=== PATIENT | female | born 1995 | race Two or more races ===

== ENCOUNTER 2017-09-25 17:24 | Inpatient (IN) | payer OTHER ==
[~2017-09-25] VITALS: Ht 162.6 cm; Wt 45.4 kg
[~2017-09-25 17:24] MED LIST: FLEXERIL10 MG PO; PRENATABS RX TA1 TAB
[2017-09-25] MEDS ORDERED: PREDNISONE50 MG (17:36)
[2017-09-25] MEDS ORDERED: VITAMIN D400 UNI3 (17:36)
[2017-09-25] MEDS ORDERED: DUI500 (17:38)
[2017-09-25] MEDS ORDERED: MEGESTROL ACETA20 MG (17:39)
[2017-09-25] MEDS ORDERED: HYDROXYCHLOROQ200 MG (17:39)
[2017-09-25] MEDS ORDERED: TESSALON PERLE100 M1 (17:39)
[2017-09-25] MEDS ORDERED: INTEGRA PLUS C1 EACH (17:39)
[2017-09-25] MEDS ORDERED: PRILOSEC10 MG (17:39)
[2017-10-09] MEDS ORDERED: FOLIC ACID1 MG PO (19:08)
[2017-10-09] MEDS ORDERED: PANTOPRAZOLE SO40 MG PO (19:08)
[2017-10-09] MEDS ORDERED: OXYC1TAB9 PO (19:08)
[2017-10-09] MEDS ORDERED: Neurin-Sl Tablet Sl SL (19:08)
[2017-10-09] MEDS ORDERED: PREDNISONE20 MG PO (19:08)
[2017-10-09] MEDS ORDERED: Plaquenil PO (19:08)
== END 2017-10-09 19:33 | disposition home or self-care (01) | DRG 516 ==
LOC: ER 17:24 → SEC-K 09-26 11:46 → MEDI 09-26 11:46 → MEDJ 09-26 14:40 → MEDI 09-26 21:17
PROC: 30233N1 Transfusion of Nonautologous Red Blood Cells into Peripheral Vein, Percutaneous Approach (ICD-10-PCS; 2017-09-26)
PROC: BW25YZZ Computerized Tomography (CT Scan) of Chest, Abdomen and Pelvis using Other Contrast (ICD-10-PCS; 2017-09-29)
PROC: 07BJ3ZX Excision of Left Inguinal Lymphatic, Percutaneous Approach, Diagnostic (ICD-10-PCS; principal; 2017-09-30)
PROC: BW4GZZZ Ultrasonography of Pelvic Region (ICD-10-PCS; 2017-10-02)
PROC: BW21ZZZ Computerized Tomography (CT Scan) of Abdomen and Pelvis (ICD-10-PCS; 2017-10-04)
PROC: 07BJ0ZX Excision of Left Inguinal Lymphatic, Open Approach, Diagnostic (ICD-10-PCS; 2017-10-07)
DX: M32.14 Glomerular disease in systemic lupus erythematosus (principal); D69.3 Immune thrombocytopenic purpura; L02.31 Cutaneous abscess of buttock; L03.317 Cellulitis of buttock; L04.1 Acute lymphadenitis of trunk; D50.8 Other iron deficiency anemias; K21.9 Gastro-esophageal reflux disease without esophagitis; E87.6 Hypokalemia

== ENCOUNTER 2017-10-26 20:45 | Emergency (ER) | payer OTHER ==
[~2017-10-26] VITALS: Ht 162.6 cm; Wt 45.4 kg
[~2017-10-26 20:45] MED LIST changes: +DUI500; +FOLIC ACID1 MG PO; +HYDROXYCHLOROQ200 MG; +INTEGRA PLUS C1 EACH; +MEGESTROL ACETA20 MG; +Neurin-Sl Tablet Sl SL; +OXYC1TAB9 PO; +PANTOPRAZOLE SO40 MG PO; +PREDNISONE20 MG PO; +PREDNISONE50 MG; +PRILOSEC10 MG; +Plaquenil PO; +TESSALON PERLE100 M1; +VITAMIN D400 UNI3
[2017-10-26] MEDS ORDERED: PREDNISONE10 MG (21:08)
[2017-10-26] MEDS ORDERED: VITAMIN B122500 MC1 (21:09)
== END 2017-10-27 00:26 | disposition home or self-care (01) ==
LOC: ER 20:45
DX: M32.8 Other forms of systemic lupus erythematosus (principal)

== ENCOUNTER 2017-12-09 07:14 | Outpatient (CLI) | payer OTHER ==
[~2017-12-09 07:14] MED LIST changes: +PREDNISONE10 MG; +VITAMIN B122500 MC1
== END 2017-12-09 07:20 | disposition home or self-care (01) ==
LOC: RAD 07:14
DX: M46.1 Sacroiliitis, not elsewhere classified (principal); M70.62 Trochanteric bursitis, left hip; M16.2 Bilateral osteoarthritis resulting from hip dysplasia

== ENCOUNTER 2017-12-09 08:22 | Outpatient (CLI) | payer OTHER | END 2017-12-09 08:42 | disposition home or self-care (01) | LOC: NUCLEAR 08:22 | DX: M32.10 Systemic lupus erythematosus, organ or system involvement unspecified (principal); R00.8 Other abnormalities of heart beat; I47.2 Ventricular tachycardia ==

== ENCOUNTER → 2018-03-28 | Outpatient (CLI) | payer OTHER | END | disposition home or self-care (01) | LOC: RAD 10:52 | DX: M16.0 Bilateral primary osteoarthritis of hip (principal); R80.8 Other proteinuria; N18.9 Chronic kidney disease, unspecified; N04.8 Nephrotic syndrome with other morphologic changes; M06.89 Other specified rheumatoid arthritis, multiple sites; M32.10 Systemic lupus erythematosus, organ or system involvement unspecified; M70.61 Trochanteric bursitis, right hip; M70.62 Trochanteric bursitis, left hip; M16.2 Bilateral osteoarthritis resulting from hip dysplasia; M46.1 Sacroiliitis, not elsewhere classified ==

== ENCOUNTER 2018-04-04 10:08 | Outpatient (CLI) | payer OTHER | END 2018-04-04 10:10 | disposition home or self-care (01) | LOC: SONOGRAMA 10:08 | DX: N18.9 Chronic kidney disease, unspecified (principal); R80.8 Other proteinuria; N04.8 Nephrotic syndrome with other morphologic changes; M06.9 Rheumatoid arthritis, unspecified; M32.10 Systemic lupus erythematosus, organ or system involvement unspecified; M70.60 Trochanteric bursitis, unspecified hip; E04.8 Other specified nontoxic goiter; R22.1 Localized swelling, mass and lump, neck; R59.0 Localized enlarged lymph nodes ==

== ENCOUNTER 2019-03-20 14:14 | Emergency (ER) | payer OTHER ==
[~2019-03-20] VITALS: Ht 162.6 cm; Wt 56.7 kg
== END 2019-03-20 19:45 | disposition home or self-care (01) ==
LOC: ER 14:14
DX: M79.662 Pain in left lower leg (principal); M79.661 Pain in right lower leg; M32.9 Systemic lupus erythematosus, unspecified

== ENCOUNTER 2019-04-02 07:28 | Outpatient (CLI) | payer OTHER | END 2019-04-02 07:33 | disposition home or self-care (01) | LOC: SONOGRAMA 07:28 | DX: K92.1 Melena (principal) ==